=== PATIENT | female | born 1955 | race Caucasian/White ===

== ENCOUNTER 2017-01-28 14:32 | Emergency (ER) | payer MEDICARE, BC ==
[~2017-01-28] VITALS: Ht 161.3 cm; Wt 67.5 kg
[2017-01-28] MEDS ORDERED: TRAZODONE HCL100 M1 PO (14:42)
[2017-01-28] MEDS ORDERED: PREMARIN1.25 M1 PO (14:42)
[2017-01-28] MEDS ORDERED: REQUIP1 M1 PO (14:42)
[2017-01-28] MEDS ORDERED: ZOLOFT25 M1 PO (14:43)
[2017-01-28] MEDS ORDERED: XANAX0.25 M1 PO (14:44)
[2017-01-28] MEDS ORDERED: PRILOSEC OTC20 M1 PO (14:44)
== END 2017-01-28 16:08 ==
LOC: EDMED → EDBD 14:32 → EDMED 14:32
DX: F41.1 Generalized anxiety disorder (principal); F32.9 Major depressive disorder, single episode, unspecified; Z88.2 Allergy status to sulfonamides; Z90.710 Acquired absence of both cervix and uterus; Z90.89 Acquired absence of other organs; Z79.899 Other long term (current) drug therapy